=== PATIENT | female | born 1995 | race Caucasian/White ===

== ENCOUNTER 2018-02-18 15:30 | Emergency (ER) | payer OTHER ==
[~2018-02-18] VITALS: Ht 165.1 cm; Wt 47.6 kg
[~2018-02-18 15:30] MED LIST: CYCLOBENZAPRINE10 MG PO; NAPROXEN500 MG PO; PSEUDOEPHEDRINE30 MG PO; SULFAMETHOXAZO1 EAC1 PO; TRAMADOL HCL50 MG PO; VENTOLIN HFA18 GM INH
== END 2018-02-18 16:41 | disposition home or self-care (01) ==
LOC: ED 15:30
PROC: 0HQFXZZ Repair Right Hand Skin, External Approach (ICD-10-PCS; principal; 2018-02-18)
DX: S61.210A Laceration without foreign body of right index finger without damage to nail, initial encounter (principal); F17.200 Nicotine dependence, unspecified, uncomplicated; Z23 Encounter for immunization; W25.XXXA Contact with sharp glass, initial encounter
CPT/HCPCS: 12001; 90471; 90715; 99282

== ENCOUNTER 2018-02-19 19:33 | Emergency (ER) | payer OTHER ==
[~2018-02-19] VITALS: Ht 165.1 cm; Wt 47.6 kg
== END 2018-02-19 23:15 | disposition home or self-care (01) ==
LOC: ED 19:33
DX: S61.210D Laceration without foreign body of right index finger without damage to nail, subsequent encounter (principal); F17.200 Nicotine dependence, unspecified, uncomplicated; W25.XXXD Contact with sharp glass, subsequent encounter
CPT/HCPCS: 73140; 99283

== ENCOUNTER 2018-10-29 15:35 | Emergency (ER) | payer OTHER ==
[~2018-10-29] VITALS: Ht 165.1 cm; Wt 60.8 kg
--- OUTSIDE RECORDS SUMMARY | 2018-10-29 15:38 | XMS ---
PreManage Notification: MONICA GREENE Security Prospecting Observer Events No recent Security Events currently on file CRITERIA MET - Group Notification - [facility] CARE PROVIDERS NAREN VAZQUEZ Physician Roustabout Pusher Current PHONE: [phone] LYUDMILA WRIGHT Record Press Supervisor Current PHONE: [phone] MANJU GRULLON Nurse Practitioner: 02/20/2018-Current PHONE: Unknown LYUDMILA WRIGHT Primary Care Current PHONE: Unknown Checo Carbajal Current PHONE: Unknown Coni has no Care Guidelines for this patient. Care History Medical/Surgical 02/22/2018 [facility] Care Recommendation: - Patient DOES NOT have a PCP. - Please refer patient to [place] [facility]: [address] [place] [address], [place] [address] This patient has had 5 or more Emergency Department visits in the last 12 months.\T\nbsp; Patient requires education on the scope and purpose of the ED as an acute care provider not a Primary Care Provider and should not be utilized for chronic conditions.\T\nbsp; If patient returns to ED please contact Community Health WorkerKassi at [phone]. These are guidelines and the provider should exercise clinical judgment when providing care. E.D. VISIT COUNT (12 MO.) 3 [facility] TOTAL 3 NOTE: Visits indicate total known visits. ED/UCC VISIT TRACKING (12 MO.) 10/29/2018 15:35 [facility] [place] TYPE: Emergency COMPLAINT: - R HIP PAIN 02/19/2018 19:33 [facility] [place] TYPE: Emergency COMPLAINT: - R POINTER FINGER INJURY DIAGNOSES: - Nicotine dependence, unspecified, uncomplicated - Laceration without foreign body of right index finger without damage to nail, initial encounter - Laceration without foreign body of right index finger without damage to nail, subsequent encounter - Contact with sharp glass, subsequent encounter - Laceration without foreign body of right index finger without damage to nail, subsequent encounter 02/18/2018 15:31 [facility] [place] TYPE: Emergency COMPLAINT: - R INDEX FINGER LAC DIAGNOSES: - Encounter for immunization - Unspecified injury of right wrist, hand and finger(s), initial encounter - Nicotine dependence, unspecified, uncomplicated - Contact with sharp glass, initial encounter - Laceration without foreign body of right index finger without damage to nail, initial encounter INPATIENT VISIT TRACKING (12 MO.) No inpatient visits to display in this time frame [email or web address]
[2018-10-29] MEDS ORDERED: ULTRAM50 MG PO (17:02)
== END 2018-10-29 17:12 | disposition home or self-care (01) ==
LOC: ED 15:35
DX: S70.211A Abrasion, right hip, initial encounter (principal); J45.909 Unspecified asthma, uncomplicated; F17.200 Nicotine dependence, unspecified, uncomplicated; W19.XXXA Unspecified fall, initial encounter
CPT/HCPCS: 73502; 73560; 73610; 96372; 99283-25; 99406; J1170; J2550

== ENCOUNTER 2020-05-12 16:49 | Emergency (ER) | payer SELFPAY ==
[~2020-05-12] VITALS: Ht 165.1 cm; Wt 60.8 kg
[~2020-05-12 16:49] MED LIST changes: +ULTRAM50 MG PO
--- OUTSIDE RECORDS SUMMARY | 2020-05-12 16:52 | XMS ---
PreManage Notification: MONICA GREENE Security Commercial Representative Events No recent Security Events currently on file CRITERIA MET - Group Notification - [facility] - 2 Visits in 30 Days CARE PROVIDERS NAREN VAZQUEZ Physician Braiding Machine Tender Current PHONE: [phone] MANJU GRULLON Nurse Practitioner: Family 02/20/2018-Current PHONE: [phone] Coni has no Care Guidelines for this patient. Care History Medical/Surgical 02/22/2018 [facility] Care Recommendation: - Patient DOES NOT have a PCP. - Please refer patient to [facility] [place] [facility]: [address] [place] [address], [place] [address] This patient has had 5 or more Emergency Department visits in the last 12 months.\T\nbsp; Patient requires education on the scope and purpose of the ED as an acute care provider not a Primary Care Provider and should not be utilized for chronic conditions.\T\nbsp; If patient returns to ED please contact Community Health WorkerKassi at [phone]. These are guidelines and the provider should exercise clinical judgment when providing care. Marisol VISIT COUNT (12 MO.) 1 [facility] 1 [facility] TOTAL 2 NOTE: Visits indicate total known visits. ED/UCC VISIT TRACKING (12 MO.) 05/12/2020 16:50 [facility] [place] TYPE: Emergency COMPLAINT: - HIGH HEART RATE 05/04/2020 20:46 [facility]an Formerly named [facility] TYPE: Emergency DIAGNOSES: - Palpitations - Dehydration - Tachycardia, unspecified - Tachycardia - Unspecified right bundle-branch block - Chest Pain INPATIENT VISIT TRACKING (12 MO.) No inpatient visits to display in this time frame [id number]
[2020-05-12] MEDS ORDERED: WELLBUTRIN XL300 MG PO (17:13)
--- NOTE | 2020-05-12 22:10 | EKG ---
[facility] [address] [facility] [place] [address] Signed Normal sinus rhythm Incomplete right bundle branch block Borderline ECG No previous ECGs available Confirmed by EMANUEL JOHNSON MD ([id number]) on 05/12/2020 10:10:32 PM Electronically Signed By: EMANUEL JOHNSON MD 05/12/202209 PATIENT NAME: MONICA GREENE BJ Electrocardiogram DATE OF : [birth year] PHYSICIAN: EMANUEL JOHNSON MD REPORT #: [id number] REPORT IS CONFIDENTIAL AND NOT TO BE RELEASED WITHOUT AUTHORIZATION
== END 2020-05-12 18:07 | disposition home or self-care (01) ==
LOC: ED 16:49
DX: R00.2 Palpitations (principal); J45.909 Unspecified asthma, uncomplicated; F17.200 Nicotine dependence, unspecified, uncomplicated; Z79.899 Other long term (current) drug therapy
CPT/HCPCS: 93005; 93010; 99284-25

== ENCOUNTER 2023-06-18 10:51 | Day surgery (SDC) | payer BC, OTHER ==
[~2023-06-18] VITALS: Ht 165.1 cm; Wt 65.6 kg
--- NOTE | ~2023-06-18 | OR ---
[facility] [address] [place], [place] [address] Draft DATE OF OPERATION: 06/18/2023 SURGEON: Esteban Alvarez DO PREOPERATIVE DIAGNOSES: Incomplete . POSTOPERATIVE DIAGNOSES: Incomplete . PROCEDURES PERFORMED: Suction, dilation and curettage. ANESTHESIA: LMA IS/IT PROJECT MANAGER: None. SPECIMEN: Products of conception. ESTIMATED BLOOD LOSS: 10 mL. COMPLICATIONS: None. INDICATIONS: Ms. Barker is a very pleasant 28-year-old, G3, P0, with recent failed medical [facility]. She had increasing bleeding today and presented to the emergency department. Ultrasound demonstrated retained products of conception, reviewed options and the patient desires suction dilation and curettage. Risks, benefits, and alternatives were discussed in detail with the patient. The patient understand and wishes to proceed with the procedure. TECHNIQUE: The patient was taken to the operating room where a time-out was performed to confirm correct patient and correct procedure. LMA was placed for anesthesia and the patient PATIENT NAME: MONICA BARKER OPERATIVE REPORT DATE OF : [birth year] REPORT #: [id number] PHYSICIAN: ESTEBAN ALVAREZ (ROSE LEWIS PCP: OTHER PCP REPORT IS CONFIDENTIAL AND NOT TO BE RELEASED WITHOUT AUTHORIZATION [facility] [address] [place] [id number] Draft was prepped and draped in the dorsal lithotomy position with her feet in Yellofin stirrups. ICPs were on and running. The patient received doxycycline 200 mg p.o. 1 hour preoperatively and no heparin was indicated. The bladder was drained. Weighted speculum was placed in the vagina. The anterior lip of the cervix was grasped with an Allis clamp. The cervix was gently dilated to a #11 with Hegar dilators. Retained products were able to be palpated in the uterine cavity with dilator. A #11 curved curette was selected and gently inserted in the cervical os and advanced carefully to the fundus. Suction was obtained in the green zone. The curette was slowly withdrawn while performing circumferential curettage with a large amount of retained products of conception noted in the suction tubing. After the first pass, additional tissue was noted at the cervical os and this was grasped with polyp forceps and gently removed. Two additional passes with the suction curette were performed demonstrating no additional products of conception. The uterus was involuted and firm and bleeding was scant. The patient did receive Pitocin as well as 1 g TXA. The patient was then taken to PACU in good and stable condition. Sponge, needle, and counts was correct x2 at the end of procedure. DO UZMA Lamb/MODL /[id number] Copies: ~ PATIENT NAME: MONICA BARKER BJ OPERATIVE REPORT DATE OF : [birth year] REPORT #: [id number] PHYSICIAN: ESTEBAN ALVAREZ) PCP: OTHER PCP REPORT IS CONFIDENTIAL AND NOT TO BE RELEASED WITHOUT AUTHORIZATION
[~2023-06-18 10:51] MED LIST changes: +NEURONTIN300 MG PO; +WELLBUTRIN XL300 MG PO
[2023-06-18 11:29] LABS: BASOPHILS 0.5 % (0-2); EOSINOPHILS 3.4 % (0-6); HEMATOCRIT 35.8 % (35.0-50.0); LYMPHOCYTES 24.6 % (24-44); MCH 29.3 (27-36); MCHC 33.5 g/dl (30-36); MCV 87.6 fl (81-99); MONOCYTES 7.9 % (0-12); NEUTROPHILS 63.6 % (39-80); PLATELET COUNT 298 K/uL (140-440); RBC 4.09 M/ul (4.3-5.7); RDW 12.7 (10.5-15.0)
[2023-06-18 11:38] LABS: BILIRUBIN, URINE NEGATIVE (negative); BLOOD/HGB, URINE LARGE (Negative); KETONE, URINE NEGATIVE (Negative); LEUK ESTERASE, URINE MODERATE (negative); NITRITE, URINE NEGATIVE (negative); PH, URINE 6.5 (5-7)
[2023-06-18 11:50] LABS: RED BLOOD CELLS, URINE >50 /hpf (0-5); REFLEX CULTURE, URINE No (No)
[2023-06-18 11:51] LABS: EPITHELIAL CELLS, URINE SQUAMOUS 1+ /lpf (0-1+)
[2023-06-18 12:07] LABS: ABO A; RH NEGATIVE
[2023-06-18] MEDS ORDERED: KETOROLAC TROME10 MG PO (14:33)
[2023-06-18] MEDS ORDERED: NURTEC ODT75 MG SL (14:36)
--- NOTE | 2023-06-18 15:35 | NUR ---
06/18/23 1535 Miriam Holt 1527- PT ARRIVES TO PACU NONAROUSABLE TO NOXIOUS STIMULI WITH AN OPA IN PLACE. RESP EVEN AND UNLABORED. OXYGEN SAT 100% ON 10L VIA MASK. 1535- OXYGEN TITRATED DOWN TO 6L VIA MASK OXYGEN SAT HAS MAINTAINED AT 100% ON 10L. PT REMAINS NONAROUSABLE WITH AN OPA IN PLACE.
[2023-06-18] MEDS ORDERED: HYDROCODON-ACE1 EA10 PO (15:59)
[2023-06-18] MEDS ORDERED: ONDANSETRON ODT8 MG PO (15:59)
[2023-06-18] MEDS ORDERED: IBUPROFEN IB200 MG PO (15:59)
[2023-06-18 16:05] VITALS: BP 103/67
--- NOTE | 2023-06-18 16:26 | NUR ---
PATIENT ARRIVED TO CCU ROOM 126. PATIENT HAS TO STAY 1 HOUR IN CCU WHICH WOULD BE 1700. PATIENT MUST MEET CRITERIA TO GO HOME. ON ARRIVAL TO CCU PATIENT RESTING IWHT HER EYES CLOSED. PATIENT STATES "IM AWAKE, I JUST DONT LIKE THE LIGHT". PATIEN ON RA WITH SPO2 100%. PATIENT UP TO THE BATHROOM AND TOLERATED WELL. SCANT BLOOD NOTED ON PAD. PATIENT NOW RESTING IN BED ON HER IPAD. WATER, JELLO, AND CRACKERS PROVIDED. PATIENT DENEIS PAIN AND NAUSEA. PATIENTS BOYFRIEND AT THE BEDSIDE. MD DEJESUS SPOKE WITH HIM ABOUT THE PLAN OF CARE PRIOR TO PATIENTS ARRIVAL. PRESCRIPTION ALREADY TAKEN TO PHARMACY BY BOYFRIEND.
[2023-06-18 16:30] VITALS: BP 108/70
--- NOTE | 2023-06-18 16:54 | NUR ---
PATIENT DENIES NAUSEA VOMITING OR PAIN. PATIENT TOELRATED LIQUIDS JELLOS AND CRACKERS WITH NO ISSUES. PATIENT LAYING IN BED READING BOOK. WILL FINISH PATIENTS DISCHARGE PACKET.
[2023-06-18 16:55] VITALS: BP 104/77
--- NOTE | 2023-06-18 17:10 | NUR ---
PATIENT MET ALL CRITERIA AND READY FOR DISCHARGE HOME. PATIENTS VITALS DONE, IV REMOVED, AND PATIENT UP AND DRESSED WITH NO ISSUES. PATIENT GATHERED ALL BELONGINGS. REVIEWED PLAN OF CARE WITH PATIENT AND HER BOYFRIEND. PATIENT WILL CALL TUESDAY TO FOLLOW UP APT WITH MD. EDUCATED TO MONITOR PADS FOR BLEEDING. PATIENT VERBALIZED UNDERSTANDING. NO OTHER NEEDS AT THIS TIME. THIS RN TOOK PATIENT TO THE FRONT VIA WHEELCHAIR WHERE HER BOYFRIEND MET US AND SHE GOT IN THE CAR.
--- NOTE | 2023-06-22 13:10 | PATH ---
[facility] [address] [place], [place] [address] Signed SPECIMEN(S): A PRODUCTS OF CONCEPTION SPECIMEN SOURCE: A. PRODUCTS OF CONCEPTION CLINICAL HISTORY: Status post miscarriage/. Retained products of conception FINAL PATHOLOGIC DIAGNOSIS: Products of conception: - Products of conception identified BRP MICROSCOPIC EXAMINATION: Histologic sections of all submitted blocks are examined by light microscopy. These findings, together with the gross examination, support the pathologic diagnosis. GROSS DESCRIPTION: The specimen, labeled and designated "Mj, products of conception," is received in formalin and consists of irregular shaped membranous and hemorrhagic tissue fragments that aggregate measure 5.0 x 4.2 x 1.2 cm. tissue is not grossly identified. Handle Machine Operator sections are submitted in (A1). JS (under the direct supervision of a pathologist) The Gross Description was prepared using a voice recognition system. The report was reviewed for accuracy; however, sound-alike word errors, addition and/or deletions may occur. If there is any question about this report, please contact Client Services. ADDITIONAL NOTES: Immunohistochemical and/or in situ hybridization studies if performed in this case included appropriate positive controls that reacted as expected. This test was developed and its performance characteristics determined by [facility]. It has not been cleared or approved by the U.S. Food and Drug Administration. The FDA has determined that such clearance or approval is not necessary. This test is used for clinical purposes. It should not be regarded as investigational or for research. [facility] is certified under the Clinical Laboratory Improvement Amendments of 1988 (CLIA) as qualified to perform high complexity clinical PATIENT NAME: MONICA GREENE PATHOLOGY DATE OF : [birth year] REPORT #: [id number] PHYSICIAN: NADIA LANDERS PCP: OTHER PCP REPORT IS CONFIDENTIAL AND NOT TO BE RELEASED WITHOUT AUTHORIZATION [facility] [address] [facility] [place], [place] [address] Signed laboratory testing. PERFORMING LABORATORY: Technical component was performed by [facility], [address] [place] [address] (CLIA# [id number]). Professional interpretation was performed by [facility], [address] [place] [address] (CLIA#:[id number]). Diagnostician: Isak Clement MD Pathologist Electronically Signed 06/22/2023 Copies: ~ PATIENT NAME: MONICA GREENE PATHOLOGY DATE OF : [birth year] REPORT #: [id number] PHYSICIAN: NADIA LANDERS PCP: OTHER PCP REPORT IS CONFIDENTIAL AND NOT TO BE RELEASED WITHOUT AUTHORIZATION
== END 2023-06-18 17:10 | disposition home or self-care (01) ==
LOC: ED 10:51 → DS 14:22 → DSVR 14:22 → DS 17:10
PROVIDERS: Emergency Medicine; ATTEND Obstetrics & Gynecology
PROC: 10D17ZZ Extraction of Products of Conception, Retained, Via Natural or Artificial Opening (ICD-10-PCS; principal; 2023-06-18 15:00)
DX: O07.4 Failed attempted termination of pregnancy without complication (principal); I48.91 Unspecified atrial fibrillation; F17.290 Nicotine dependence, other tobacco product, uncomplicated; Z79.899 Other long term (current) drug therapy
CPT/HCPCS: 00940; 36415; 76830; 76856; 81001; 84702; 85025; 86900; 86901; 96374; 99285-25; J0330; J1100; J1885; J2250; J2405; J2590; J2704; J2765; J3010; J3490; J7030; J7121